=== PATIENT | male | born 1960 | race African-American/Black ===

== ENCOUNTER → 2025-02-15 | Outpatient (CLI) | payer OTHER ==
--- NOTE | 2025-02-15 16:53 | US ---
EXAMINATION TYPE: US axilla LT DATE OF EXAM: 02/15/2025 COMPARISON: NONE CLINICAL INDICATION: Male, 64 years old with history of R22.32 LOCALIZED SWELLING, MASS A; Lump left axilla. TECHNIQUE: FINDINGS: Hypoechoic area seen suggestive of lymph node cortex 2mm. IMPRESSION: 1. Left axillary lymph node [facility] Olga Shearer, , 02/15/2025 4:50 PM
== END | disposition home or self-care (01) ==
LOC: RADUSWWP 12:43
PROVIDERS: ATTEND Family Medicine
DX: R22.32 Localized swelling, mass and lump, left upper limb (principal)